=== PATIENT | female | born 1980 | race Two or more races ===

== ENCOUNTER 2019-06-18 01:36 | Emergency (ER) | payer OTHER ==
[~2019-06-18] VITALS: Ht 154.9 cm; Wt 83.9 kg
== END 2019-06-18 05:22 | disposition home or self-care (01) ==
LOC: ER 01:36
DX: T23.152A Burn of first degree of left palm, initial encounter (principal); X08.8XXA Exposure to other specified smoke, fire and flames, initial encounter; Y93.89 Activity, other specified; Y92.89 Other specified places as the place of occurrence of the external cause; Y99.8 Other external cause status